=== PATIENT | male | born 1995 | race Caucasian/White ===

== ENCOUNTER 2018-06-13 17:17 | Emergency (ER) | payer OTHER ==
[2018-06-13] MEDS ORDERED: ONDANSETRON DISINTEGRATING 4 MG TAB PO ONE (17:54)
[2018-06-13] MEDS ORDERED: NS 1,000 ML IV ONE (18:05)
[2018-06-13] MEDS ORDERED: ONDANSETRON 4 MG/2 ML VIAL IVP ONE (18:05)
[2018-06-13] MEDS ORDERED: KETOROLAC 30 MG/1 ML SDV IVP ONE (18:05)
--- NOTE | 2018-06-13 18:08 | EDPHY ---
H & P Stated Complaint: slipped hit head last night--h/a, nausea, dizzy today Time Seen by Provider: 06/13/18 17:49 HPI/ROS: CHIEF COMPLAINT: Headache, vomiting HISTORY OF PRESENT ILLNESS: 23-year-old male presents after a closed head injury with headache and vomiting. Yesterday evening he was trying to do a back flip and fell directly on the left side of his head. He struck a wooden floor and sustained a left scalp laceration. He was seen at [facility] and the laceration was sutured. CT scan of the brain was normal. Onset of vomiting today, unable to tolerate oral fluids. Continues to have a moderate headache, 6 /10, and dizziness. Denies neck pain, abdominal pain or other injuries. REVIEW OF SYSTEMS: complete 10 point ROS reviewed and is negative except for the noted elements in the HPI - Personal History Current Tetanus/Diphtheria Vaccine: Unsure Current Tetanus Diphtheria and Acellular Pertussis (TDAP): Unsure - Medical/Surgical History Hx Asthma: No Hx Chronic Respiratory Disease: No Hx Diabetes: No Hx Cardiac Disease: No Hx Renal Disease: No Hx Cirrhosis: No Hx Alcoholism: No Hx HIV/AIDS: No Hx Splenectomy or Spleen Trauma: No Other PMH: denies - Social History Smoking Status: Never smoked Constitutional: Initial Vital Signs Temperature (C) 36.7 C 06/13/18 17:40 Heart Rate 74 06/13/18 17:40 Respiratory Rate 16 06/13/18 17:40 Blood Pressure 137/69 H 06/13/18 17:40 O2 Sat (%) 99 06/13/18 17:40 O2 Delivery Mode Room Air Allergies/Adverse Reactions: No Known Allergies Allergy (Unverified 06/13/18 17:39) Home Medications: Medication Instructions Recorded Ondansetron Odt [Zofran Odt 4 mg 4 mg PO Q4 PRN #6 tab 06/13/18 (*)] Medical Decision Making ED Course/Re-evaluation: This patient presents with concussive symptoms. IV normal saline 1 L, Zofran 4 mg IV and Toradol 30 mg IV given. [place] much better after IV fluids and medications. Tolerated oral fluids well. Will discharge home. Concussion instructions given. Differential Diagnosis: includes though not limited to acute gastritis, intracranial hemorrhage, dehydration, hypotension - Data Points Medications Given: Discontinued Medications Sodium Chloride (Ns) 1,000 mls @ 0 mls/hr IV EDNOW ONE; Wide Open PRN Reason: Protocol Stop: 06/13/18 18:06 Last Admin: 06/13/18 18:14 Dose: 1,000 mls Ketorolac Tromethamine (Toradol) 30 mg IVP EDNOW ONE Stop: 06/13/18 18:06 Last Admin: 06/13/18 18:14 Dose: 30 mg Ondansetron HCl (Zofran Odt) 4 mg PO EDNOW ONE Stop: 06/13/18 17:55 Last Admin: 06/13/18 18:02 Dose: Not Given Ondansetron HCl (Zofran) 4 mg IVP EDNOW ONE Stop: 06/13/18 18:06 Last Admin: 06/13/18 18:14 Dose: 4 mg Ondansetron HCl (Zofran Odt 4 Mg Prepack#2) 1 btl TAKEHOME EDNOW ONE Stop: 06/13/18 19:11 Last Admin: 06/13/18 19:45 Dose: 1 btl Departure - Departure Disposition: Home, Routine, Self-Care Clinical Impression: Concussion Qualifiers: Encounter type: subsequent encounter Loss of consciousness presence/duration: without LOC Qualified Code(s): S06.0X0D - Concussion without loss of consciousness, subsequent encounter Vomiting Qualifiers: Vomiting type: unspecified Vomiting Intractability: intractable Nausea presence : with nausea Qualified Code(s): R11.2 - Nausea with vomiting, unspecified Condition: Good Instructions: Ondansetron (By mouth), Concussion (ED) Additional Instructions: Vomiting instructions: 1. Clear liquids for 24 hours. 2. Advance diet as tolerated. I suggest the BRAT diet to start: bananas, rice, applesauce and toast. 3. Return for worsening symptoms, persistent vomiting, abdominal pain, any concerns. Concussion instructions: 1. Cognitive rest while symptomatic. Limit screen time (phone, TV, computer) until symptoms resolve. 2. Limit physical activities that could lead to head injury until symptoms have completely resolved. Wear a helmet when skiing and biking. 3. Use Tylenol and ibuprofen as directed on the packaging as needed for pain for the next few days. 4. Follow up with your primary care provider and/or head injury specialist if you have persisting symptoms for more than 10 days. 5. Return to the ED for severe headache, weakness or numbness on one side of your body, or other worsening of condition. Referrals: Isabel Del Rio MD [Medical Doctor] - As per Instructions Prescriptions: Ondansetron Odt [Zofran Odt 4 mg (*)] 4 mg PO Q4 PRN #6 tab PRN Reason: Nausea
[2018-06-13] MEDS ORDERED: ONDANSETRON 4MG PREPACK#2 BTL TAKEHOME ONE (19:10)
[2018-06-13 19:54] VITALS: BP 138/68
== END 2018-06-13 19:54 | disposition home or self-care (01) ==
DX: S06.0X0A Concussion without loss of consciousness, initial encounter (principal); E86.9 Volume depletion, unspecified; W01.198A Fall on same level from slipping, tripping and stumbling with subsequent striking against other object, initial encounter; Y93.43 Activity, gymnastics; Y92.9 Unspecified place or not applicable
CPT/HCPCS: 96374; J1885; J2405